=== PATIENT | female | born 1990 | race Caucasian/White ===

== ENCOUNTER 2018-01-12 07:21 | Day surgery (SDC) | payer BC, OTHER ==
[2018-01-09 12:48] VITALS: BMI 33.0
[2018-01-12] MEDS ORDERED: PROPOFOL 20 ML ONE ×2 (07:29)
[2018-01-12 08:01] VITALS: TEMP 97.8
[2018-01-12 10:01] VITALS: BP 126/72; PULSE 82
--- NOTE | 2018-01-16 17:32 | PATH ---
Surgical Pathology Report Patient Name: LELIA MCCULLOUGH [facility]. Rec. #: [id number] /Age/Gender: 1990 (Age: 27) / F Account: [id number] Location: [facility] AMB[facility] Taken: 01/12/2018 Received: 01/12/2018 Reported: 01/16/2018 Physicians: Vince Hardy M.D. Specimen(s) Received A: BX DUODENUM B: BX ANTRUM Clinical History GERD Postoperative diagnosis: Rule out celiac disease, rule out H. Pylori Final Diagnosis A. DUODENUM, BIOPSY: DUODENAL MUCOSA WITHOUT SIGNIFICANT PATHOLOGIC FINDINGS. B. STOMACH, ANTRUM, BIOPSY: GASTRIC ANTRAL MUCOSA WITH MODERATE CHRONIC GASTRITIS. IMMUNOHISTOCHEMICAL STAIN FOR H. PYLORI IS NEGATIVE. Electronically Signed Diamante Manning M.D. Gross Description A. Received in formalin, labeled "duodenum" are 3 varela, irregular portions of soft tissue ranging from 0.3-0.4 cm. in greatest dimension. The specimens are submitted in toto in one cassette. B. Received in formalin, labeled "antrum" are 2 varela, irregular portions of soft tissue measuring 0.4 and 0.5 cm. in greatest dimension. The specimens are submitted in toto in one cassette. saudi/01/12/2018
== END 2018-01-12 09:50 | disposition home or self-care (01) ==
LOC: FASU 07:21
PROVIDERS: ATTEND Internal Medicine Gastroenterology
PROC: 0DB98ZX Excision of Duodenum, Via Natural or Artificial Opening Endoscopic, Diagnostic (ICD-10-PCS; principal; 2018-01-12 09:02)
PROC: 0DB68ZX Excision of Stomach, Via Natural or Artificial Opening Endoscopic, Diagnostic (ICD-10-PCS; 2018-01-12 09:02)
DX: K44.9 Diaphragmatic hernia without obstruction or gangrene (principal); K29.50 Unspecified chronic gastritis without bleeding; R12 Heartburn
CPT/HCPCS: 84703; 88305-TC; 88342-TC